=== PATIENT | female | born 1955 | race Caucasian/White ===

== ENCOUNTER 2022-12-20 10:24 | Inpatient (IN) ==
--- NOTE | 2022-12-20 10:53 | Emergency Department Note ---
HPI General Chief complaint: Rib Pain Stated complaint: Rib pain Time Seen by Provider: 12/20/22 10:52 Source: EMS Mode of arrival: EMS Limitations: no limitations History of Present Illness HPI Narrative: Narrative: Patient is a 67-year-old female with a history significant for osteoporosis who presents to the emergency department due to left-sided chest pain. She states that about a day and a half ago at night she fell and hit her left chest. She states that since that time she has had significant pain, and it has continued, so decided to come to the emergency department. She states that it is a significant ache that worsens with activity, deep breathing, and with any movement. She does endorse some shortness of breath as well. She denies any other symptoms currently. Related Data Home Medications Medication Instructions Recorded Confirmed magnesium chloride [magnesium] 1 tab PO DAILY 05/01/21 12/20/22 calcium carbonate 600 mg-vitamin 2 cap PO BID 05/02/21 12/20/22 D3 12.5 mcg (500 unit) capsule (Calcium 600 with Vitamin D3) MV, hair skin and nails 2 gummy PO DAILY 08/14/21 12/20/22 Previous Rx's Medication Instructions Recorded fexofenadine 180 mg tablet 180 mg PO QDAY #90 tabs 08/30/15 hydrocodone 5 mg-acetaminophen 325 1 tab PO Q4-6H PRN pain #42 tabs 05/16/22 mg tablet fluoxetine 10 mg capsule 20 mg PO QDAY 90 days #180 caps 06/04/22 spironolactone 25 mg tablet 25 mg PO QDAY 90 days #90 tabs 09/04/22 losartan 25 mg tablet 25 mg PO QDAY 90 days #90 tabs 10/01/22 zolpidem 5 mg tablet 5 mg PO QHS PRN insomnia #90 tabs 11/28/22 Allergies Allergy/AdvReac Type Severity Reaction Status Date / Time No Known Drug Allergies Allergy Verified 12/20/22 16:18 Review of Systems ROS ROS Narrative: Narrative: Constitutional: Denies fever or weakness Eyes: Denies eye pain or vision change ENT ED: Denies throat pain or rhinorrhea Cardiovascular: Reports chest pain; Denies dyspnea on exertion, orthopnea or edema Respiratory: Reports shortness of breath; Denies cough Gastrointestinal: Denies abdominal pain, nausea, vomiting, diarrhea, constipation, hematochezia or melena Musculoskeletal: Denies back pain or myalgia Integumentary: Denies rash or lesions Neurological: Denies headache, weakness, numbness, confusion, abnormal gait or dizziness [facility] Narrative Patient History Narrative: Narrative: Medical/Surgical/Family History All Active Problems (Updated 12/21/22 @ 10:58 by Hollis Sexton MD) Fracture, ribs (Acute) Age-related osteoporosis with current pathological fracture, vertebra(e), initial encounter for fracture (Acute) Thoracic back pain (Acute) Osteoporotic compression fracture of spine (Acute) Laceration (Acute) Medicare annual wellness visit, initial (Acute) Osteoarthritis (Chronic) History of colon polyps (Chronic) 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) Environmental allergies (Chronic) Acute traumatic injury of chest wall (Acute) Insomnia (Chronic) Hyperlipidemia (Chronic) Seasonal allergies (Acute) H/O colonoscopy (Chronic) Finger joint replaced (Chronic) Osteoporosis (Chronic) Hypertension, essential (Chronic) Medical History Age-related osteoporosis with current pathological fracture, vertebra(e), initial encounter for fracture Carrier of hemochromatosis HFE gene mutation Depression with anxiety Environmental allergies History of colon polyps Hyperlipidemia Hypertension, essential Insomnia Liver enzyme elevation Osteoarthritis Osteoporosis Osteoporotic compression fracture of spine Thoracic back pain Surgical History Finger joint replaced 2018, 2015, 2017, right Thumb Boyea. followed and last seen 08/08 H/O colonoscopy 2007, 2014, 2020 (7 year f/u recommended) Family History Sister Dementia Mother Essential hypertension Cancer Brother Essential hypertension Stroke Father Stroke Social History Smoking Status: Never smoker Alcohol Intake Frequency: a few times a week Substance Use: does not use Exam Narrative Narrative: Narrative: General Limitations: no limitations General appearance: Present alert and in no apparent distress; Absent anxious, appears intoxicated or sleepy Head Head: Present atraumatic and normocephalic Eye Eye: Present EOMI; Absent scleral icterus or nystagmus ENT ENT: Present mucous membranes moist; Absent nasal congestion Neck Neck: Present full ROM; Absent tenderness Chest Chest: Present normal inspection, symmetric chest wall rise and tenderness Respiratory Respiratory: Present normal lung sounds bilaterally; Absent respiratory distress or accessory muscle use Cardiovascular Cardiovascular: Present regular rate, normal rhythm and normal heart sounds Adbominal Abdominal: Present soft; Absent distention Extremities Extremities: Present normal inspection and full ROM; Absent tenderness, pedal edema or pretibial edema Back Back: Present normal inspection and full ROM Neurological Neurological: Present alert and oriented X3 Psychiatric Psychiatric: Present normal affect and normal mood Skin Skin: Present warm (WNL), dry and normal color Course Vital Signs Vital signs: Vital Signs Temperature 97.1 F 12/20/22 10:24 Pulse Rate 71 12/20/22 10:24 Respiratory Rate 18 12/20/22 10:24 Blood Pressure 148/81 12/20/22 10:24 Pulse Oximetry (%) 99 12/20/22 10:24 Oxygen Delivery Method Room Air 12/20/22 10:24 Temperature 97.5 F 12/21/22 07:57 Pulse Rate 74 12/21/22 07:57 Respiratory Rate 16 12/21/22 08:00 Blood Pressure 119/74 12/21/22 07:57 Pulse Oximetry (%) 96 12/21/22 07:57 Oxygen Delivery Method Room Air 12/21/22 08:00 [facility]DM Narrative Medical decision making narrative: Narrative: Patient is a 67-year-old female with a history significant for osteoporosis who presents to the emergency department due to left-sided chest pain. Differential diagnoses include rib fractures, rib contusion, soft tissue injury, ACS, and pneumonia. Because of patient's pain I did give patient a lidocaine patch and Toradol. This did not seem to resolve patient's pain, so she was given a dose of Dilaudid. Patient's labs are reassuring overall. EKG is reassuring as well. Patient CT chest does demonstrate fractures of ribs 5 through 10 on the left. For this reason I have spoken to Dr. Angeles who agrees with the admission and states that he will stay on as a consult if the hospitalist team needs this. I have spoken to Dr. Shah who has agreed to see and evaluate patient for admission. Lab Data 12/20/22 11:37 Labs: Lab Results 12/20/22 12/20/22 Range/Units 11:37 11:40 WBC 8.0 (4.5-11.0) K/mcL RBC 3.83 (3.59-5.38) M/mcL Hgb 11.3 (11.2-15.7) g/dL Hct 35.2 (34.1-44.9) % POC Hct 34.0 L (36-48) MCV 91.9 (80.0-100.0) fL MCH 29.5 (26.0-34.0) pg MCHC 32.1 (31.0-36.0) g/dL RDW 12.6 (11.5-14.5) % Plt Count 310 (140-440) K/mcL MPV 9.3 (8.8-12.5) fL Immature Gran % (Auto) 0.4 (0.0-0.5) % Neut % (Auto) 81.7 H (38.0-78.0) % Lymph % (Auto) 9.7 L (15.5-49.0) % [place] % (Auto) 7.4 (1.0-12.0) % Eos % (Auto) 0.3 (0.0-7.0) % Baso % (Auto) 0.5 (0.0-2.0) % Lymph # (Auto) 0.77 L (1.50-4.80) K/mcL [place] # (Auto) 0.59 (0.10-0.90) K/mcL Eos # (Auto) 0.02 (0.00-0.70) K/mcL Baso # (Auto) 0.04 (0.00-0.30) K/mcL Immature Gran # 0.03 (0.00-0.05) K/mcl Absolute Neutrophils 6.50 (1.80-8.00) K/mcL POC Sodium 136 (133-145) POC Potassium 4.5 (3.3-5.1) POC Chloride 101 (96-108) POC Total CO2 27.0 (22-30) POC BUN 19 (6-20) POC Creatinine 0.9 (0.6-1.2) POC Glucose 92 (70-105) POC WB Ioniz Calcium 1.13 L (1.16-1.32) EKG Data EKG #1: EKG attestation: Yes I reviewed and interpreted this EKG. EKG results narrative: Normal sinus rhythm with a rate of 66, left axis deviation, T wave inversion in lead III, T wave flattening in lead aVF, and absence of ST elevation or depression. Discharge Plan Patient/Caregiver Discharge Instructions Pt seen by ADVICE CLERK/PA only: No Clinical Impression: Fracture, ribs Patient Disposition: Xfer As Inpt ([facility]) Discharge Date/Time: 12/20/22 15:50
[2022-12-20 11:42] LABS: POC Calcium, Ionized 1.13 (1.16-1.32); POC Creatinine 0.9 (0.6-1.2); POC Potassium 4.5 (3.3-5.1)
[2022-12-20] MEDS ORDERED: LIDOCAINE PATCH TOPICAL ONE (11:51)
[2022-12-20] MEDS ORDERED: KETOROLAC 60 MG/2 ML VIAL IM ONE (11:51)
[2022-12-20 12:20] LABS: Basophils # (Auto) 0.04 K/mcL (0.00-0.30); Basophils % (Auto) 0.5 % (0.0-2.0); Eosinophils # (Auto) 0.02 K/mcL (0.00-0.70); Eosinophils % (Auto) 0.3 % (0.0-7.0); Hematocrit 35.2 % (34.1-44.9); Hemoglobin 11.3 g/dL (11.2-15.7); Lymphocytes # (Auto) 0.77 K/mcL (1.50-4.80); Lymphocytes % (Auto) 9.7 % (15.5-49.0); Mean Cell Volume 91.9 fL (80.0-100.0); Mean Corpuscular HGB Conc 32.1 g/dL (31.0-36.0); Mean Platelet Volume 9.3 fL (8.8-12.5); Monocytes # (Auto) 0.59 K/mcL (0.10-0.90); Monocytes % (Auto) 7.4 % (1.0-12.0); Neutrophils % (Auto) 81.7 % (38.0-78.0); Platelet Count 310 K/mcL (140-440); RBC 3.83 M/mcL (3.59-5.38); Red Cell Distribution Width 12.6 % (11.5-14.5)
--- NOTE | 2022-12-20 13:14 | Cat Scan Report ---
CLINICAL INFORMATION: Fall now with left chest wall pain COMPARISON: None TECHNIQUE: 0.625 mm axial slices were obtained from the lung apices through the bases without intravenous contrast. 2.5 mm Sagittal, coronal and axial reformatted images were processed and reviewed at bone, lung and soft tissue windows. 7 mm axial MIP images were also reconstructed to optimize pulmonary nodule detection.The exam was performed using radiation dose optimization techniques including, but not limited to, automated exposure control, adjustment of the mA and/or kV according to patient size and use of iterative reconstruction technique. FINDINGS: Pulmonary parenchymal windows show subsegmental atelectasis in the lower lobes. Lungs are otherwise clear. There is no effusions or evidence of pneumothorax. Mediastinal windows show the lesion noncontrasted thoracic aorta and pulmonary arteries are normal in diameter. The heart is normal in size. There is calcific plaque in the proximal LAD coronary artery. No hemorrhage is seen in the mediastinum. No adenopathy in the mediastinal hilar or axillary regions. The esophagus is normal. The thyroid is unremarkable. Bone windows show minimal chronic T10, mild T11 and moderate L1 compression fractures which are unchanged from 01/19/2022 lateral chest x-ray. There are acute nondisplaced fractures of the lateral left fifth sixth seventh a and possibly ninth and 10th ribs. Bilateral subglandular breast implants appear grossly normal. No evidence of extracapsular rupture. Soft tissues are, otherwise normal. Images through the superior abdomen show a 4.6 cm cyst superior pole the right kidney. Visualized left kidney, both adrenal glands, pancreas, spleen and gallbladder and liver are normal. IMPRESSION: 1. Acute nondisplaced fractures of the lateral left fifth through 10th ribs 2. Minimal T10, mild T11 moderate L1 compression fractures-chronic 3. Subsegmental atelectasis-both lower lobes. Interpreted and Authenticated by: Renny Mckeon 12/20/22
[2022-12-20] MEDS ORDERED: HYDROmorphone 0.5 MG/0.5 ML SYRINGE IV ONE (13:24)
--- NOTE | 2022-12-20 14:47 | EKG ---
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 Measurements Intervals [place] Rate: 66 P: 25 [place]: 162 QRS: -3 QRSD: 100 T: 19 QT: 425 QTc: 446 Interpretive Statements Sinus rhythm Consider left atrial enlargement Electronically Signed On 12-20-2022 14:46:58 PST by Renny Menendez M.D. /store/M0/[id number]
--- NOTE | 2022-12-20 15:48 | Internal Med History&Physical ---
HPI History of Present Illness Patient information: Note initiated : 12/20/22 at 3:43 pm Service Date, if different from initiated Date: [] Patient: Zuleyma Rojas 67 y/o F admitted on for Rib pain. Chief Complaint: [Pain] Chief complaint: Rib pain History of present illness: Ms. Rojas is a 67 year old F with a past medical history significant for osteoporosis and prior thoracic compression fracture presents to the hospital after ground-level fall resulting in multiple rib fractures. The patient states that she was going to bed yesterday when she was removing her decorative pillows and then somehow slipped, fell and landed against the headboard. Her account was rather vague. She states that she was able to get up, go to bed and try to go to sleep. The following day, her pain was quite excruciating. She lives alone, and called her friend. She was brought to the ER for intractable pain. On arrival she was hemodynamically stable and afebrile. CT chest without contrast was performed and revealed acute nondisplaced fractures of the lateral left fifth through 10th ribs. She was given IV Dilaudid in the ER. The hospitalist service was asked admit the patient for further management and evaluation. Review of Systems All systems: reviewed and no additional remarkable complaints except as stated Constitutional Constitutional: Present as per HPI EENT Eyes: Present as per HPI; Absent blurry vision Cardiovascular Cardiovascular: Present as per HPI; Absent chest pain, dyspnea, dyspnea on exertion, leg edema or palpatations Respiratory Respiratory: Present as per HPI; Absent cough, dyspnea, dyspnea on exertion, wheezing or stridor Gastrointestinal Gastrointestinal: Present as per HPI; Absent abdominal pain, diarrhea, dysphagia, hematemesis, melena, nausea or vomiting Musculoskeletal Musculoskeletal: Present as per HPI; Absent joint swelling, limited range of motion, muscle cramps, muscle weakness or myalgias Integumentary Integumentary: Present as per HPI; Absent erythema, new lesions, rash or wounds Neurological Neurological: Present as per HPI; Absent abnormal gait, behavioral changes, focal weakness, headache(s), loss of vision, numbness, sensory deficit or syncope Endocrine Endocrine: Absent change in body appearance, fatigue or heat intolerance Hematologic/Lymphatic Hematologic/Lymphatic: Present as per HPI PFSH PFSH All Active Problems Age-related osteoporosis with current pathological fracture, vertebra(e), initial encounter for fracture (Acute) Thoracic back pain (Acute) Osteoporotic compression fracture of spine (Acute) Laceration (Acute) Medicare annual wellness visit, initial (Acute) Osteoarthritis (Chronic) History of colon polyps (Chronic) 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) Environmental allergies (Chronic) Acute traumatic injury of chest wall (Acute) Insomnia (Chronic) Hyperlipidemia (Chronic) Seasonal allergies (Acute) H/O colonoscopy (Chronic) Finger joint replaced (Chronic) Osteoporosis (Chronic) Hypertension, essential (Chronic) Medical History Age-related osteoporosis with current pathological fracture, vertebra(e), initial encounter for fracture Carrier of hemochromatosis HFE gene mutation Depression with anxiety Environmental allergies History of colon polyps Hyperlipidemia Hypertension, essential Insomnia Liver enzyme elevation Osteoarthritis Osteoporosis Osteoporotic compression fracture of spine Thoracic back pain Surgical History Finger joint replaced 2018, 2015, 2016, right Thumb Boyea. 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 other: Children-2 eating out: 1-3 times/week physical activity: walking smoking status: Never smoker alcohol intake frequency: a few times a week substance use type: does not use diane/buddhism: Scientologist seatbelt use: always MEDS/ALLERGIES Home Medications and Allergies Home Medications Medication Instructions Recorded Confirmed Type fexofenadine 180 mg tablet 180 mg PO QDAY #90 tabs 08/30/15 12/20/22 Rx magnesium chloride [magnesium] 1 tab PO DAILY 05/01/21 12/20/22 History calcium carbonate 600 mg-vitamin 2 cap PO BID 05/02/21 12/20/22 History D3 12.5 mcg (500 unit) capsule (Calcium 600 with Vitamin D3) MV, hair skin and nails 1 tab PO DAILY 08/14/21 12/20/22 History hydrocodone 5 mg-acetaminophen 325 1 tab PO Q4-6H PRN pain #42 tabs 05/16/22 12/20/22 Rx mg tablet fluoxetine 10 mg capsule 20 mg PO QDAY 90 days #180 caps 06/04/22 12/20/22 Rx spironolactone 25 mg tablet 25 mg PO QDAY 90 days #90 tabs 09/04/22 12/20/22 Rx losartan 25 mg tablet 25 mg PO QDAY 90 days #90 tabs 10/01/22 12/20/22 Rx zolpidem 5 mg tablet 5 mg PO QHS PRN insomnia #90 tabs 11/28/22 12/20/22 Rx Allergies Allergy/AdvReac Type Severity Reaction Status Date / Time No Known Drug Allergies Allergy Verified 12/20/22 10:26 EXAM Constitutional Vitals: Temp Pulse Resp BP Pulse Ox O2 Del Method 97.1 F 78 18 115/73 96 Room Air 12/20/22 10:24 12/20/22 15:15 12/20/22 10:24 12/20/22 15:15 12/20/22 15:15 12/20/22 10:24 General appearance: average body habitus Head Head exam: Present atraumatic, normal inspection and normocephalic Eye Eye exam: Present EOMI, normal appearance and PERRL; Absent conjunctival injection ENT ENT exam: Present normal exam; Absent mucous membranes dry Neck Neck exam: Present full ROM; Absent lymphadenopathy Respiratory Respiratory exam: Present normal respiratory exam and CTAB; Absent decreased breath sounds, respiratory distress or wheezes Cardiovascular Cardiovascular exam: Present normal rate and rhythm and RRR; Absent JVD GI/Abdominal GI/Abdominal exam: Present normal bowel sounds and soft; Absent diminished bowel sounds, distended, guarding, mass, rebound or tenderness Neurological Exam Neurological exam: Present alert, CN II-XII intact and oriented X3 Psychiatric Psychiatric exam: Present normal affect and normal mood Skin Skin exam: Present intact and warm; Absent erythema, pallor, petechiae or rash DATA Data Completed and Pending Labs: Labs from last 24 hours 12/20/22 12/20/22 11:40 11:37 WBC 8.0 RBC 3.83 Hgb 11.3 Hct 35.2 POC Hct 34.0 L MCV 91.9 MCH 29.5 MCHC 32.1 RDW 12.6 Plt Count 310 MPV 9.3 Immature Gran % (Auto) 0.4 Neut % (Auto) 81.7 H Lymph % (Auto) 9.7 L [place] % (Auto) 7.4 Eos % (Auto) 0.3 Baso % (Auto) 0.5 Lymph # (Auto) 0.77 L [place] # (Auto) 0.59 Eos # (Auto) 0.02 Baso # (Auto) 0.04 Immature Gran # 0.03 Absolute Neutrophils 6.50 POC Sodium 136 POC Potassium 4.5 POC Chloride 101 POC Total CO2 27.0 POC BUN 19 POC Creatinine 0.9 POC Glucose 92 POC WB Ioniz Calcium 1.13 L A/P Assessment and plan (1) Age-related osteoporosis with current pathological fracture, vertebra(e), initial encounter for fracture: Status: Acute Narrative A/P Narrative: The patient was found to have greater than 3 rib fractures. She was not tachypneic, and is not requiring supplemental O2. She will need pain control we will start with ice and heat packs as well as ketorolac 30 mg IV every 6 hours, Tylenol 650 mg p.o. every 6 hours, and oxycodone 5 mg p.o. every 4 hours as needed. IV Dilaudid can be used for breakthrough pain. If this fails, she may benefit from thoracic intercostal nerve block. 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 Of note, there is no evidence of flail chest. Time Spent With Patient Time: Total time spent is greater than 50% in coordination of care (as documented) at patient's floor/unit and/or counseling patient: Initial: Total time with patient: 55 - 74 minutes
[2022-12-20] MEDS ORDERED: ONDANSETRON 4 MG/2 ML VIAL IV PRN (16:21)
[2022-12-20] MEDS ORDERED: HYDROmorphone 0.5 MG/0.5 ML SYRINGE IV PRN (16:21)
[2022-12-20] MEDS ORDERED: ACETAMINOPHEN 325 MG TABLET PO PRN (16:21)
[2022-12-20] MEDS: oxyCODONE HCL 5 MG TABLET PO PRN ×2 (18:08→22:20)
[2022-12-20] MEDS ORDERED: ZOLPIDEM 5 MG TABLET PO PRN (20:33)
[2022-12-20] MEDS: SENNOSIDES 1 TABLET PO SCH (20:36)
[2022-12-20] MEDS: DOCUSATE SODIUM 100 MG CAPSULE PO SCH (20:36)
[2022-12-20] MEDS: 0.9 % SODIUM CHLORIDE 10 ML SYRINGE IV SCH (22:19)
[2022-12-21] MEDS: KETOROLAC 30 MG/ML VIAL IV PRN ×3 (03:41→21:28)
[2022-12-21 06:37] LABS: Basophils # (Auto) 0.04 K/mcL (0.00-0.30); Basophils % (Auto) 0.6 % (0.0-2.0); Eosinophils # (Auto) 0.18 K/mcL (0.00-0.70); Eosinophils % (Auto) 2.9 % (0.0-7.0); Hematocrit 31.6 % (34.1-44.9); Hemoglobin 10.1 g/dL (11.2-15.7); Lymphocytes # (Auto) 0.79 K/mcL (1.50-4.80); Lymphocytes % (Auto) 12.6 % (15.5-49.0); Mean Cell Volume 92.7 fL (80.0-100.0); Mean Platelet Volume 9.2 fL (8.8-12.5); Monocytes # (Auto) 0.49 K/mcL (0.10-0.90); Monocytes % (Auto) 7.8 % (1.0-12.0); Neutrophils % (Auto) 75.9 % (38.0-78.0); Platelet Count 285 K/mcL (140-440); RBC 3.41 M/mcL (3.59-5.38); Red Cell Distribution Width 12.7 % (11.5-14.5); WBC 6.3 K/mcL (4.5-11.0)
[2022-12-21] MEDS: 0.9 % SODIUM CHLORIDE 10 ML SYRINGE IV SCH ×3 (07:19→22:04)
[2022-12-21] MEDS: oxyCODONE HCL 5 MG TABLET PO PRN ×4 (07:27→21:29)
[2022-12-21] MEDS: DOCUSATE SODIUM 100 MG CAPSULE PO SCH ×2 (08:39→21:30)
[2022-12-21] MEDS: ENOXAPARIN 40 MG/0.4 ML SYRINGE SQ SCH (08:39)
--- NOTE | 2022-12-21 10:34 | Internal Med Progress Note ---
SUBJECTIVE Subjective Patient information: Note initiated : 12/21/22 at 10:33 am Service Date, if different from initiated Date: [] Patient: Zuleyma Rojas 67 y/o F admitted on 12/20/22 for Rib pain. Chief Complaint: [Chest pain] Principal diagnosis: Multiple nondisplaced fractures Interval history: The patient states that her pain is worse today especially with movement. Discussed the case with RN who was present at the bedside. Constitutional Vitals: Vital Signs Temp Pulse Resp BP Pulse Ox O2 Del Method 97.5 F 74 16 119/74 96 Room Air 12/21/22 07:57 12/21/22 07:57 12/21/22 08:00 12/21/22 07:57 12/21/22 07:57 12/21/22 08:00 Period Temp Pulse Resp BP Sys/Tobin Pulse Ox O2 Del Method O2 Flow Rate Last 24 Hr 97.5 F-99.1 F 69-83 16-18 114-148/63-98 95-100 Room Air-Room Air Intake and Output 12/20/22 12/21/22 12/21/22 19:59 03:59 11:59 Intake Total 125 Balance 125 Weight 63.673 kg 64.365 kg Intake & Output: Intake & Output 12/20/22 12/21/22 12/21/22 19:59 03:59 11:59 Intake Total 125 Balance 125 Weight 63.673 kg 64.365 kg Intake: Oral 125 Head Head exam: Present atraumatic and normal inspection Eye Eye exam: Present normal appearance ENT ENT exam: Present mucous membranes moist, normal exam and normal external ear exam Neck Neck exam: Present normal inspection Respiratory Respiratory exam: Present normal respiratory exam Cardiovascular Cardiovascular exam: Present normal rate and rhythm GI/Abdominal GI/Abdominal exam: Present normal bowel sounds Back Exam Back exam: Present normal inspection Neurological Exam Neurological exam: Present alert and oriented X3 Skin Skin exam: Present intact and warm OBJ DATA Labs 12/21/22 05:24 Labs: Abnormal Lab Results 12/21/22 12/20/22 12/20/22 05:24 11:40 11:37 RBC 3.41 L Hgb 10.1 L Hct 31.6 L POC Hct 34.0 L Neut % (Auto) 81.7 H Lymph % (Auto) 12.6 L 9.7 L Lymph # (Auto) 0.79 L 0.77 L POC WB Ioniz Calcium 1.13 L Meds: Medications Acetaminophen (Acetaminophen 325 Mg Tablet) 650 mg PO Q6HP PRN; Protocol PRN Reason: PAIN/FEVER > 101 Docusate Sodium (Docusate Sodium 100 Mg Capsule) 100 mg PO BID [facility] Last Admin: 12/21/22 08:39 Dose: 100 mg Enoxaparin Sodium (Enoxaparin 40 Mg/0.4 Ml Syringe) 40 mg SQ DAILY [facility] Last Admin: 12/21/22 08:39 Dose: 40 mg Hydromorphone HCl (Hydromorphone 0.5 Mg/0.5 Ml Syringe) 0.5 mg IV Q2HP PRN; Protocol PRN Reason: Per Pain Protocol Ketorolac Tromethamine (Ketorolac 30 Mg/Ml Vial) 30 mg IV Q6HP PRN; Protocol PRN Reason: Pain Stop: 12/22/22 14:34 Last Admin: 12/21/22 03:41 Dose: 30 mg Ondansetron HCl (Ondansetron 4 Mg/2 Ml Vial) 4 mg IV Q6HP PRN PRN Reason: Nausea And Vomiting Oxycodone HCl (Oxycodone Hcl 5 Mg Tablet) 5 - 10 mg PO Q4HP PRN; Protocol PRN Reason: Per Pain Protocol Senna (Sennosides 1 Tablet) 2 tab PO HS [facility] Last Admin: 12/20/22 20:36 Dose: Not Given Sodium Chloride (0.9 % Sodium Chloride 10 Ml Syringe) 10 ml IV Q8 [facility] Last Admin: 12/21/22 07:19 Dose: 10 ml Zolpidem Tartrate (Zolpidem 5 Mg Tablet) 5 mg PO [facility] PRN PRN Reason: Insomnia Last Admin: 12/20/22 22:22 Dose: 5 mg A/P Assessment and plan (1) Age-related osteoporosis with current pathological fracture, vertebra(e), initial encounter for fracture: Status: Acute Narrative A/P Narrative: The patient was found to have greater than 3 rib fractures. She was not tachypneic, and is not requiring supplemental O2. She will need pain control we will start with ice and heat packs as well as ketorolac 30 mg IV every 6 hours, Tylenol 650 mg p.o. every 6 hours, and oxycodone 5 mg p.o. every 4 hours as needed. IV Dilaudid can be used for breakthrough pain. If this fails, she may benefit from thoracic intercostal nerve block. 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 Of note, there is no evidence of flail chest. 12/21: We will increase oxycodone to 10 mg p.o. every 4 hours as needed. May need to speak with anesthesia regarding intercostal nerve block if her pain is s till not under control. Time Spent With Patient Time: Total time spent is greater than 50% in coordination of care (as documented) at patient's floor/unit and/or counseling patient: Subsequent: Total time with patient: 25 - 34 minutes QUALITY VTE Deep Vein Thrombosis/Pulmonary Embolism Present on Admission: No
[2022-12-21] MEDS: SENNOSIDES 1 TABLET PO SCH (21:30)
[2022-12-22] MEDS: oxyCODONE HCL 5 MG TABLET PO PRN ×4 (08:05→21:16)
[2022-12-22] MEDS: KETOROLAC 30 MG/ML VIAL IV PRN (08:06)
[2022-12-22] MEDS: ENOXAPARIN 40 MG/0.4 ML SYRINGE SQ SCH (08:06)
[2022-12-22] MEDS: 0.9 % SODIUM CHLORIDE 10 ML SYRINGE IV SCH ×3 (08:06→21:16)
[2022-12-22] MEDS: DOCUSATE SODIUM 100 MG CAPSULE PO SCH ×2 (12:03→21:15)
--- NOTE | 2022-12-22 13:07 | Internal Med Progress Note ---
SUBJECTIVE Subjective Patient information: Note initiated : 12/22/22 at 1:02 pm Service Date, if different from initiated Date: [] Patient: Zuleyma Rojas 67 y/o F admitted on 12/20/22 for Rib pain. Chief Complaint: [] Principal diagnosis: Multiple nondisplaced fractures Interval history: Ms. Rojas is a 67 year old F with a past medical history significant for osteoporosis and prior thoracic compression fracture presents to the hospital after ground-level fall resulting in multiple rib fractures. The patient states that she was going to bed yesterday when she was removing her decorative pillows and then somehow slipped, fell and landed against the headboard. Her account was rather vague. She states that she was able to get up, go to bed and try to go to sleep. The following day, her pain was quite excruciating. She lives alone, and called her friend. She was brought to the ER for intractable pain. On arrival she was hemodynamically stable and afebrile. CT chest without contrast was performed and revealed acute nondisplaced fractures of the lateral left fifth through 10th ribs. She was given IV Dilaudid in the ER. The hospitalist service was asked admit the patient for further management and evaluation. 12/21: The patient states that her pain is worse today especially with movement. Disc ussed the case with RN who was present at the bedside. 12/22: Patient is c/o 5/10 sharp left lateral chest wall pain. Worsening shortness of breath. General body weakness. Continue pain control with Tylenol, Toradol, Oxycodone, and Dilaudid. Incentive spirometry. Constitutional Vitals: Vital Signs Temp Pulse Resp BP Pulse Ox O2 Del Method 36.7 C 67 22 123/87 100 Room Air 12/22/22 11:49 12/22/22 11:49 12/22/22 11:49 12/22/22 11:49 12/22/22 11:49 12/22/22 11:49 Period Temp Pulse Resp BP Sys/Tobin Pulse Ox O2 Del Method O2 Flow Rate Last 24 Hr 36.4 C-37.0 C 61-71 12-22 97-123/65-87 98-100 Room Air-Room Air Intake and Output 12/22/22 12/22/22 12/22/22 03:59 11:59 19:59 Intake Total 440 Output Total 550 Balance -110 Weight 66.088 kg Intake & Output: Intake & Output 12/22/22 12/22/22 12/22/22 03:59 11:59 19:59 Intake Total 440 Output Total 550 Balance -110 Weight 66.088 kg Intake: Oral 440 Output: Void Amount 550 Other: Meal Breakfast Percent of Meal Consumed 100% Feeding Ability Independent Head Head exam: Present atraumatic and normal inspection Eye Eye exam: Present normal appearance ENT ENT exam: Present mucous membranes moist, normal exam and normal external ear exam Neck Neck exam: Present normal inspection Respiratory Respiratory exam: Present normal respiratory exam and chest wall tenderness Cardiovascular Cardiovascular exam: Present normal rate and rhythm GI/Abdominal GI/Abdominal exam: Present normal bowel sounds Back Exam Back exam: Present normal inspection Neurological Exam Neurological exam: Present alert and oriented X3 Skin Skin exam: Present intact and warm OBJ DATA Labs 12/21/22 05:24 Labs: Abnormal Lab Results 12/21/22 12/20/22 12/20/22 05:24 11:40 11:37 RBC 3.41 L Hgb 10.1 L Hct 31.6 L POC Hct 34.0 L Neut % (Auto) 81.7 H Lymph % (Auto) 12.6 L 9.7 L Lymph # (Auto) 0.79 L 0.77 L POC WB Ioniz Calcium 1.13 L Meds: Medications Acetaminophen (Acetaminophen 325 Mg Tablet) 650 mg PO Q6HP PRN; Protocol PRN Reason: PAIN/FEVER > 101 Docusate Sodium (Docusate Sodium 100 Mg Capsule) 100 mg PO BID [facility] Last Admin: 12/22/22 12:03 Dose: 100 mg Enoxaparin Sodium (Enoxaparin 40 Mg/0.4 Ml Syringe) 40 mg SQ DAILY [facility] Last Admin: 12/22/22 08:06 Dose: 40 mg Hydromorphone HCl (Hydromorphone 0.5 Mg/0.5 Ml Syringe) 0.5 mg IV Q2HP PRN; Protocol PRN Reason: Per Pain Protocol Ketorolac Tromethamine (Ketorolac 30 Mg/Ml Vial) 30 mg IV Q6HP PRN; Protocol PRN Reason: Pain Stop: 12/22/22 14:34 Last Admin: 12/22/22 08:06 Dose: 30 mg Ondansetron HCl (Ondansetron 4 Mg/2 Ml Vial) 4 mg IV Q6HP PRN PRN Reason: Nausea And Vomiting Oxycodone HCl (Oxycodone Hcl 5 Mg Tablet) 5 - 10 mg PO Q4HP PRN; Protocol PRN Reason: Per Pain Protocol Last Admin: 12/22/22 12:02 Dose: 10 mg Senna (Sennosides 1 Tablet) 2 tab PO HS [facility] Last Admin: 12/21/22 21:30 Dose: Not Given Sodium Chloride (0.9 % Sodium Chloride 10 Ml Syringe) 10 ml IV Q8 [facility] Last Admin: 12/22/22 08:06 Dose: 10 ml Zolpidem Tartrate (Zolpidem 5 Mg Tablet) 5 mg PO HSP PRN PRN Reason: Insomnia Last Admin: 12/20/22 22:22 Dose: 5 mg A/P Assessment and plan (1) Fracture, ribs: Status: Acute (2) Osteoporotic compression fracture of spine: Status: Acute Narrative A/P Narrative: Assessment and Plans: 1. Left 5-10 rib fractures: Inpatient med surg Tylenol Toradol Oxycodone Dilaudid Supplemental oxygen Incentive spirometry Q1HWA 2. Chronic T10, T11, L1 fracture: Tylenol Toradol Oxycodone Dilaudid GI ppx: not currently indicated DVT ppx: Lovenox Code status: Full Prognosis: stable Disposition: inpatient med surg Time Spent With Patient Time: Total time spent is greater than 50% in coordination of care (as documented) at patient's floor/unit and/or counseling patient: Subsequent: Total time with patient: 35 - 49 minutes QUALITY VTE Deep Vein Thrombosis/Pulmonary Embolism Present on Admission: No
[2022-12-22] MEDS: SENNOSIDES 1 TABLET PO SCH (21:14)
[2022-12-23] MEDS: 0.9 % SODIUM CHLORIDE 10 ML SYRINGE IV SCH (04:49)
[2022-12-23] MEDS: oxyCODONE HCL 5 MG TABLET PO PRN ×3 (04:58→11:59)
[2022-12-23] MEDS: DOCUSATE SODIUM 100 MG CAPSULE PO SCH (08:11)
[2022-12-23] MEDS: ENOXAPARIN 40 MG/0.4 ML SYRINGE SQ SCH (08:11)
[2022-12-23] MEDS ORDERED: KETOROLAC 30 MG/ML VIAL IV ONE (11:38)
--- NOTE | 2022-12-23 11:41 | Discharge Summary ---
Discharge Provider Provider IMPORTANT FOLLOW-UP INFORMATION FOR PCP: Patient information: Note initiated : 12/23/22 at 11:39 am Service Date, if different from initiated Date: [] Patient: Zuleyma Rojas 67 y/o F admitted on 12/20/22 for Rib pain. Chief Complaint: [] Date of admission: 12/20/22 15:50 Discharge date: 12/23/22 Primary care physician: Surendra Salazar PA-C Attending physician on admission: Della Shah Consults: 12/20/22 Consult to Physician [CONS] Stat Comment: Consulting Provider: Della Shah Reason For Exam: Physician to Consult Consult to Physician [CONS] Stat Comment: Consulting Provider: Indigo Angeles Reason For Exam: Physician to Consult Attending physician on discharge: Chi Kenny Pui COURSE Hospital Course Hospital course: Ms. Rojas is a 67 year old F with a past medical history significant for osteoporosis and prior thoracic compression fracture presents to the hospital after ground-level fall resulting in multiple rib fractures. The patient states that she was going to bed yesterday when she was removing her decorative pillows and then somehow slipped, fell and landed against the headboard. Her account was rather vague. She states that she was able to get up, go to bed and try to go to sleep. The following day, her pain was quite excruciating. She lives alone, and called her friend. She was brought to the ER for intractable pain. On arrival she was hemodynamically stable and afebrile. CT chest without contrast was performed and revealed acute nondisplaced fractures of the lateral left fifth through 10th ribs. She was given IV Dilaudid in the ER. The hospitalist service was asked admit the patient for further management and evaluation. 12/21: The patient states that her pain is worse today especially with movement. Discussed the case with RN who was present at the bedside. 12/22: Patient is c/o 5/10 sharp left lateral chest wall pain. Worsening shortness of breath. General body weakness. Continue pain control with Tylenol, Toradol, Oxycodone, and Dilaudid. Incentive spirometry. 12/23: Discharged home. Rx given. 1-2 week PCP follow up appointment made for her. All questions were answered prior to patient being physically discharged. Discharge diagnosis: Rib fractures Time Spent with Patient Time attestation: Total time spent providing and/or coordinating discharge services: Time spent: Less than 30 minutes EXAM Constitutional Vitals: Temp Pulse Resp BP Pulse Ox O2 Del Method 36.4 C 74 20 115/76 100 Room Air 12/23/22 08:00 12/23/22 08:00 12/23/22 08:00 12/23/22 08:00 12/23/22 08:00 12/23/22 08:00 General appearance: cooperative and no acute distress Head Head exam: Present atraumatic and normocephalic Eye Eye exam: Present EOMI and PERRL ENT ENT exam: Present mucous membranes moist, normal exam and normal external ear exam Neck Neck exam: Present normal inspection; Absent lymphadenopathy, tenderness or thyromegaly Respiratory Respiratory exam: Present chest wall tenderness; Absent accessory muscle use, respiratory distress or wheezes Cardiovascular Cardiovascular exam: Present normal rate and rhythm; Absent JVD GI/Abdominal GI/Abdominal exam: Present normal bowel sounds and soft; Absent organomegaly or tenderness Extremities Exam Extremities exam: Present full ROM, normal capillary refill and normal inspection; Absent tenderness Neurological Exam Neurological exam: Present alert, CN II-XII intact and oriented X3; Absent motor sensory deficit Psychiatric Psychiatric exam: Present normal affect and normal mood; Absent anxious or depressed Skin Skin exam: Present dry and intact Discharge Plan Patient/Caregiver Discharge Instructions Activity: increase activity as tolerated Diet: Regular Diet Prescriptions: New acetaminophen 325 mg Tablet 650 mg PO Q6HP PRN (Reason: Pain/Fever > 101) Qty: 30 0RF oxycodone 5 mg Tablet 5 - 10 mg PO Q4HP PRN (Reason: Per Pain Protocol) Qty: 20 0RF ketorolac 10 mg tablet 10 mg PO Q8H 5 Days Qty: 15 0RF Continued spironolactone 25 mg tablet 25 mg PO QDAY 90 Days Qty: 90 1RF losartan 25 mg tablet 25 mg PO QDAY 90 Days Qty: 90 1RF zolpidem 5 mg tablet 5 mg PO QHS PRN (Reason: insomnia) Qty: 90 0RF fexofenadine 180 mg tablet 180 mg PO QDAY Qty: 90 4RF calcium carbonate-vitamin D3 [Calcium 600 with Vitamin D3] 600 mg(1,500mg) - 500 unit capsule 2 cap PO BID magnesium chloride [magnesium] 1 tab PO DAILY MV, hair skin and nails 2 gummy PO DAILY fluoxetine 10 mg capsule 20 mg PO QDAY 90 Days Qty: 180 1RF Discontinued hydrocodone-acetaminophen 5-325 mg tablet 1 tab PO Q4-6H MDD 3 PRN (Reason: pain) Qty: 42 0RF Follow Up Plan Follow up with: Surendra Salazar PA-C [Primary Care Provider] - Patient Disposition: Home, Self-Care Rehab Potential: Good I certify that the patient requires SNF services: No Overall status at discharge: patient is progressing back to baseline Discharge Orders: Discharge Order (Routine); Ordered 12/23/22 Ordered By: Stanford DEVINE VTE Deep Vein Thrombosis/Pulmonary Embolism Present on Admission: No
== END 2022-12-23 14:20 | disposition home or self-care (01) | DRG 544 ==
LOC: ED 10:24 → MEDSUR 15:50
PROVIDERS: ADMIT Student in an Organized Health Care Education/Training Program; ATTEND Student in an Organized Health Care Education/Training Program